=== PATIENT | male | born 1980 | race Caucasian/White ===

== ENCOUNTER 2016-09-01 18:55 | Emergency (ER) | payer OTHER ==
[2016-09-01] MEDS ORDERED: Hydromorphone 1 mg/ml Ampule IV ONE ×3 (20:17→23:59)
[2016-09-01] MEDS ORDERED: Zofran 4 MG/2 ML VIAL IV ONE (20:18)
[2016-09-01] MEDS ORDERED: Zofran 4 MG/2 ML VIAL ONE (20:23)
[2016-09-01] MEDS ORDERED: Hydromorphone 1 mg/ml Ampule ONE ×2 (20:23→22:15)
--- NOTE | 2016-09-01 20:27 | ERPHSYRPT ---
- History of Present Illness Time Seen by Provider: 09/01/16 19:00 Source: patient, family Exam Limitations: no limitations Patient Subjective Stated Complaint: pt is being treated for a compound left femur fracture from july 28 rupesh occured from a mining crush injury -he was in [place] all day today being evaluated for left knee swelling -he had a doppler done which was neg the doctor tapped the knee and found elevated wbc and he cont to wait and after becoming frustrated he left [place] and was driving home he received a call from dr hameed that he needs to have a ct with done of the leg Triage Nursing Assessment: pt is awake and alert and able to answer questions - he has not been home all day and is having pain Physician History: Dr. Hameed/Orthopedist being contacted for results of CT which he requested. Method of Injury: other (initial crush injury with reported postop infection) Occurred: other (1 month ago) Quality: sharpness Severity of Pain-Max: severe Severity of Pain-Current: severe Lower Extremities Pain: hip: left, leg: left, knee: left, thigh: left Modifying Factors: Improves With: movement Associated Symptoms: none Allergies/Adverse Reactions: No Known Drug Allergies Allergy (Unverified 09/01/16 20:17) Home Medications: Oxycodone HCl/Acetaminophen [Percocet 5-325 mg Tablet] 1 tab 09/01/16 [History] Hx Tetanus, Diphtheria Vaccination/Date Given: Yes Hx Influenza Vaccination/Date Given: Yes - Review of Systems Eyes: No Symptoms Ears, Nose, & Throat: No Symptoms Respiratory: No Symptoms Cardiac: No Symptoms Abdominal/Gastrointestinal: No Symptoms Musculoskeletal: Joint Pain, Joint Swelling Skin: No Symptoms, Other (healed incisions left leg) Neurological: No Symptoms Psychological: No Symptoms Endocrine: No Symptoms Hematologic/Lymphatic: No Symptoms Immunological/Allergic: No Symptoms - Past Medical History Pertinent Past Medical History: No - Past Surgical History Past Surgical History: No - Social History Smoking Status: Unknown if ever smoked Drug Use: none Patient Lives Alone: No - Nursing Vital Signs Nursing Vital Signs: Initial Vital Signs Pulse Rate 92 Respiratory Rate 18 Blood Pressure [] 139/67 Pain Intensity 8 - Physical Exam General Appearance: moderate distress, alert Eyes, Ears, Nose, Throat Exam: normal ENT inspection, pharynx normal, moist mucous membranes Neck Exam: normal inspection, non-tender, supple, full range of motion Cardiovascular/Respiratory Exam: chest non-tender, normal breath sounds, regular rate/rhythm Gastrointestinal/Abdominal Exam: non-tender, soft, no organomegaly Back Exam: normal inspection, normal range of motion Hips Exam: left: non-tender, normal inspection, normal range of motion, no evidence of injury Legs Exam: left leg: bone tenderness, joint effusion, limited range of motion, pain, soft tissue tenderness, swelling Knees Exam: left knee: joint effusion, pain, soft tissue tenderness, swelling Ankle Exam: left ankle: pain, soft tissue tenderness, swelling DTR - Lower Extremities Exam: ankle (R): 3+, ankle (L): 3+ Neuro/Tendon Exam: normal sensation, normal motor functions, normal tendon functions, responds to pain Mental Status Exam: alert, oriented x 3, cooperative Skin Exam: normal color, warm, dry SpO2 Interpretation: normal - Course Nursing assessment & vital signs reviewed: Yes - CT Exams Lower Extremity CT Interpretation: Discussed w/radiologist, Tele-radiologist Report ( Incompletely healed distal femur Fx with new bone formation. No osteomyelitis. No abscess.) Ordered Tests: Active Orders 24 hr Category Date Time Status IV Insertion STAT Care 09/01/16 20:19 Active CTA LOWER EXTREMITY W CONTRAST [CT] Stat Exams 09/01/16 20:20 Taken BLOOD CULTURE Stat Lab 09/01/16 20:30 Received CBC W DIFF Stat Lab 09/01/16 20:30 Completed CMP Stat Lab 09/01/16 20:30 Completed Lactic Acid Stat Lab 09/01/16 20:35 Completed Medication Summary Discontinued Medications Generic Name Dose Route Start Last Admin Trade Name Jacksonq PRN Reason Stop Dose Admin Hydromorphone HCl 1 mg 09/01/16 20:17 09/01/16 20:36 Hydromorphone 1 Mg/Ml Ampule IV 09/01/16 20:18 1 mg STAT ONE Administration Hydromorphone HCl Confirm 09/01/16 20:23 Hydromorphone 1 Mg/Ml Ampule Administered 09/01/16 20:24 Dose 1 mg .ROUTE .STK-MED ONE Hydromorphone HCl 1 mg 09/01/16 22:05 09/01/16 22:16 Hydromorphone 1 Mg/Ml Ampule IV 09/01/16 22:06 1 mg STAT ONE Administration Hydromorphone HCl Confirm 09/01/16 22:15 Hydromorphone 1 Mg/Ml Ampule Administered 09/01/16 22:16 Dose 1 mg .ROUTE .STK-MED ONE Ondansetron HCl 4 mg 09/01/16 20:18 09/01/16 20:37 Zofran 4 Mg/2 Ml Vial IV 09/01/16 20:19 4 mg STAT ONE Administration Ondansetron HCl Confirm 09/01/16 20:23 Zofran 4 Mg/2 Ml Vial Administered 09/01/16 20:24 Dose 4 mg .ROUTE .STK-MED ONE Lab/Rad Data: Laboratory Result Diagrams 09/01/16 20:30 09/01/16 20:30 Laboratory Results 09/01/16 09/01/16 09/01/16 Range/Units 20:35 20:30 20:30 WBC 7.3 (4.0-10.5) K/mm3 RBC 4.93 (4.1-5.6) M/mm3 Hgb 14.5 (12.5-18.0) gm/dl Hct 45.0 (42-50) % MCV 91.3 (78-100) fl MCH 29.4 (26-32) pg MCHC 32.2 (32-36) g/dl RDW 14.7 H (11.5-14.0) % Plt Count 301 (150-450) K/mm3 MPV 9.6 H (6-9.5) fl Gran % 52.7 (36.0-66.0) % Lymphocytes % 33.2 (24.0-44.0) % Monocytes % 10.7 (0.0-12.0) % Eosinophils % 3.0 (0.00-5.0) % Basophils % 0.4 (0.0-0.4) % Basophils # 0.03 (0-0.4) Sodium 141 (136-145) mEq/L Potassium 4.5 (3.5-5.1) mEq/L Chloride 103 (98-107) mEq/L Carbon Dioxide 28.4 (21-32) mEq/L Anion Gap 13.8 (5-15) MEQ/L BUN 21 H (9-20) mg/dL Creatinine 1.01 (0.55-1.30) mg/dl Estimated GFR > 60 ML/MIN Glucose 93 (70-110) MG/DL Lactic Acid 0.9 (0.4-2.0) Calcium 8.5 (8.5-10.1) mg/dL Total Bilirubin 0.5 (0.2-1.0) mg/dL AST 21 (15-37) U/L ALT 37 (12-78) U/L Alkaline Phosphatase 161 H (46-116) U/L Serum Total Protein 7.2 (6.4-8.2) gm/dL Albumin 3.6 (3.4-5.0) g/dL - Progress Progress: improved Discussed with Dr.: Other (his orthopedist/Dr. Hameed's PA with recs for D/C home and F/U Sunday with him.) Counseled pt/family regarding: lab results, diagnosis, need for follow-up, rad results - Departure Time of Disposition: 23:45 Departure Disposition: Home Clinical Impression: Post-op pain Condition: Stable Critical Care Time: Yes Critical Care Time(excluding separately billable procedures): 75-104 minutes Referrals: SHAUN GARCÍA [Primary Care Provider] -
[2016-09-01 20:38] LABS: BASOPHIL % 0.4 % (0.0-0.4); Granulocytes % 52.7 % (36.0-66.0); Lymphocytes % 33.2 % (24.0-44.0); Mean Cell Volume 91.3 fl (78-100); Mean Corpuscular Hemoglobin 29.4 pg (26-32); Mean Platelet Volume 9.6 fl (6-9.5); Monocytes % 10.7 % (0.0-12.0); Platelet Count 301 K/mm3 (150-450); Red Blood Count 4.93 M/mm3 (4.1-5.6); Red Cell Distribution Width 14.7 % (11.5-14.0); White Blood Count 7.3 K/mm3 (4.0-10.5)
[2016-09-01 20:59] LABS: ALBUMIN 3.6 g/dL (3.4-5.0); ALKALINE PHOSPHATASE 161 U/L (46-116); ANION GAP 13.8 MEQ/L (5-15); BILIRUBIN,TOTAL 0.5 mg/dL (0.2-1.0); BLOOD UREA NITROGEN 21 mg/dL (9-20); CHLORIDE 103 mEq/L (98-107); Carbon Dioxide 28.4 mEq/L (21-32); Glucose 93 MG/DL (70-110); Potassium 4.5 mEq/L (3.5-5.1); SGOT/AST 21 U/L (15-37); SGPT/ALT 37 U/L (12-78); SODIUM 141 mEq/L (136-145); Total Protein 7.2 gm/dL (6.4-8.2)
[2016-09-01 22:04] VITALS: O2SAT 98
[2016-09-02] MEDS ORDERED: Hydromorphone 1 mg/ml Ampule ONE (00:01)
[2016-09-02 00:15] VITALS: BP 130/78; PULSE 84
--- NOTE | 2016-09-04 08:39 | XRAY ---
Indication: Pain and elevated WBC. Knee effusion. CTA of the left leg was performed from the level of the midpelvis to the level just below the knee using 20 cc Isovue 370 contrast. Two-dimensional sagittal and coronal reformatted images obtained. Comparison: None Visualized common femoral, deep femoral, superficial femoral, and popliteal arteries are normal in course and caliber without critical stenosis/obstruction. Visualized soft tissues unremarkable. Specifically no suspicious solid/cystic mass or abnormal fluid collection. There is healing distal femur shaft fracture with good apposition/alignment and intact intramedullary and screws. Left hip and knee articulation intact. Small suprapatellar knee effusion with tiny calcifications. Impression: 1. CTA left upper leg is negative. 2. Healing distal femur shaft fracture with intact orthopedic hardware. 3. Small knee effusion. Tiny calcifications presumed posttraumatic. Comment: Preliminary interpretation was made by [facility]. No discrepancy. CTDI 17.40
== END 2016-09-02 00:46 | disposition home or self-care (01) ==
LOC: ED 18:55
DX: G89.18 Other acute postprocedural pain (principal); S72.402A Unspecified fracture of lower end of left femur, initial encounter for closed fracture
CPT/HCPCS: 36000; 36415; 73706; 80053; 83605; 85025; 87040; 96374; 96375; 96376; 99284; J1170; J2405